=== PATIENT | male | born 1935 | race Caucasian/White ===

== ENCOUNTER → 2016-09-17 | Outpatient (REF) | payer MEDICARE ==
[2016-09-17 12:54] LABS: ALBUMIN/GLOBULIN RATIO 1.33 (1.00-1.93); BILIRUBIN,TOTAL 0.4 MG/DL (0.2-1.0); CALCIUM LEVEL 8.9 MG/DL (8.8-10.2); CREATININE FOR GFR 1.29 MG/DL (0.70-1.30); GLOMERULAR FILTRATION RATE 56.8 (>35); POTASSIUM SERUM 4.7 MEQ/L (3.5-5.1)
[2016-09-17 13:08] LABS: MEAN CORPUSCULAR HGB CONC 31.8 g/dl (32.0-36.5); MEAN CORPUSCULAR VOLUME 97.6 fl (80.0-96.0); RED CELL DISTRIBUTION WIDTH 14.1 % (11.5-14.5); WHITE BLOOD COUNT 6.9 K/mm3 (4.0-10.0)
== END ==
LOC: M SFHCPLAZ 08:40
PROVIDERS: ATTEND Nurse Practitioner Adult Health
DX: Z00.00 Encounter for general adult medical examination without abnormal findings (principal); I10 Essential (primary) hypertension; I77.9 Disorder of arteries and arterioles, unspecified; E55.9 Vitamin D deficiency, unspecified; I73.9 Peripheral vascular disease, unspecified; D64.9 Anemia, unspecified

== ENCOUNTER → 2017-03-19 | Outpatient (REF) | payer MEDICARE ==
[2017-03-19 12:09] LABS: MEAN CORPUSCULAR HEMOGLOBIN 31.2 pg (27.0-33.0); MEAN CORPUSCULAR HGB CONC 32.2 g/dl (32.0-36.5); MEAN CORPUSCULAR VOLUME 96.8 fl (80.0-96.0); WHITE BLOOD COUNT 7.4 K/mm3 (4.0-10.0)
[2017-03-19 14:12] LABS: ALBUMIN/GLOBULIN RATIO 1.21 (1.00-1.93); ALKALINE PHOSPHATASE 81 U/L (45-117); ALT/SGPT 16 U/L (12-78); ANION GAP 6 MEQ/L (8-16); AST/SGOT 19 U/L (15-37); BILIRUBIN,TOTAL 0.4 MG/DL (0.2-1.0); BLOOD UREA NITROGEN 27 MG/DL (7-18); CALCIUM LEVEL 9.4 MG/DL (8.8-10.2); CARBON DIOXIDE LEVEL 27 MEQ/L (21-32); CHLORIDE LEVEL 107 MEQ/L (98-107); CHOLESTEROL LEVEL 135 MG/DL (<200); CREATININE FOR GFR 1.21 MG/DL (0.70-1.30); GLOMERULAR FILTRATION RATE > 60.0 (>35); GLUCOSE, FASTING 83 MG/DL (83-110); POTASSIUM SERUM 4.7 MEQ/L (3.5-5.1); SODIUM LEVEL 140 MEQ/L (136-145); TOTAL PROTEIN 7.3 GM/DL (6.4-8.2); TRIGLYCERIDES LEVEL 88 MG/DL (<150)
== END ==
LOC: M SFHCPLAZ 10:12
PROVIDERS: ATTEND Nurse Practitioner Adult Health
DX: Z00.00 Encounter for general adult medical examination without abnormal findings (principal); E78.2 Mixed hyperlipidemia; E55.9 Vitamin D deficiency, unspecified

== ENCOUNTER → 2018-05-13 | Outpatient (CLI) | payer MEDICARE | LOC: M WUC 10:52 | DX: S40.011A Contusion of right shoulder, initial encounter (principal); X58.XXXA Exposure to other specified factors, initial encounter; Y92.9 Unspecified place or not applicable | CPT/HCPCS: 73030 ==

== ENCOUNTER → 2018-05-19 | Outpatient (CLI) | payer MEDICARE ==
[2018-05-19 12:02] LABS: HEMATOCRIT 37.9 % (42.0-52.0); HEMOGLOBIN 12.3 g/dl (13.5-17.5); MEAN CORPUSCULAR HEMOGLOBIN 31.2 pg (27.0-33.0); MEAN CORPUSCULAR HGB CONC 32.5 g/dl (32.0-36.5); MEAN CORPUSCULAR VOLUME 96.2 fl (80.0-96.0); PLATELET COUNT, AUTOMATED 273 10^3/uL (150-450); RED BLOOD COUNT 3.94 10^6/uL (4.30-6.10); RED CELL DISTRIBUTION WIDTH 14.1 % (11.5-14.5); WHITE BLOOD COUNT 8.2 10^3/uL (4.0-10.0)
[2018-05-19 12:12] LABS: TOTAL 25(OH) VITAMIN D 55.4 NG/ML (30.0-100.0)
[2018-05-19 12:13] LABS: ALBUMIN 3.8 GM/DL (3.2-5.2); ALBUMIN/GLOBULIN RATIO 1.12 (1.00-1.93); ALKALINE PHOSPHATASE 90 U/L (45-117); ALT/SGPT 16 U/L (12-78); ANION GAP 7 MEQ/L (8-16); AST/SGOT 18 U/L (7-37); BILIRUBIN,TOTAL 0.4 MG/DL (0.2-1.0); BLOOD UREA NITROGEN 24 MG/DL (7-18); CALCIUM LEVEL 8.8 MG/DL (8.8-10.2); CARBON DIOXIDE LEVEL 30 MEQ/L (21-32); CHLORIDE LEVEL 105 MEQ/L (98-107); CHOLESTEROL LEVEL 147 MG/DL (<200); CHOLESTEROL RISK RATIO 3.418 (<5); GLOMERULAR FILTRATION RATE > 60.0 (>35); GLUCOSE, FASTING 95 MG/DL (70-100); HDL CHOLESTEROL 43 MG/DL (>40); NON-HDL-C 104 MG/DL; POTASSIUM SERUM 4.3 MEQ/L (3.5-5.1); SODIUM LEVEL 142 MEQ/L (136-145); TOTAL PROTEIN 7.2 GM/DL (6.4-8.2)
[2018-05-19 12:35] LABS: LDL CHOLESTEROL 86 MG/DL (<100); TRIGLYCERIDES LEVEL 88 MG/DL (<150)
== END ==
LOC: M WUC 09:13
DX: D64.9 Anemia, unspecified (principal); I10 Essential (primary) hypertension; E78.2 Mixed hyperlipidemia; E55.9 Vitamin D deficiency, unspecified
CPT/HCPCS: 80053

== ENCOUNTER → 2019-06-04 | Outpatient (REF) | payer MEDICARE ==
[2019-06-04 12:31] LABS: ALBUMIN 4.1 GM/DL (3.2-5.2); BILIRUBIN,TOTAL 0.5 MG/DL (0.2-1.0); CALCIUM LEVEL 9.6 MG/DL (8.8-10.2); CHOLESTEROL RISK RATIO 3.622 (<5); CREATININE FOR GFR 1.23 MG/DL (0.70-1.30); GLOMERULAR FILTRATION RATE 59.5 (>35); POTASSIUM SERUM 4.5 MEQ/L (3.5-5.1); THYROID STIMULATING HORMONE 2.65 uIU/ML (0.358-3.740); TOTAL 25(OH) VITAMIN D 68.2 NG/ML (30.0-100.0); TOTAL PROTEIN 7.6 GM/DL (6.4-8.2)
== END ==
LOC: M SFHCPLAZ 10:40
PROVIDERS: ATTEND Nurse Practitioner Adult Health
DX: I10 Essential (primary) hypertension (principal); E78.2 Mixed hyperlipidemia; E55.9 Vitamin D deficiency, unspecified

== ENCOUNTER → 2020-03-03 | Outpatient (CLI) | payer MEDICARE ==
[2020-03-03 09:29] LABS: HEMATOCRIT 39.8 % (42.0-52.0); HEMOGLOBIN 12.5 g/dl (13.5-17.5); MEAN CORPUSCULAR HEMOGLOBIN 30.6 pg (27.0-33.0); MEAN CORPUSCULAR HGB CONC 31.4 g/dl (32.0-36.5); MEAN CORPUSCULAR VOLUME 97.3 fl (80.0-96.0); PLATELET COUNT, AUTOMATED 256 10^3/uL (150-450); RED BLOOD COUNT 4.09 10^6/uL (4.30-6.10); WHITE BLOOD COUNT 8.5 10^3/uL (4.0-10.0)
[2020-03-03 10:08] LABS: ALBUMIN 3.8 GM/DL (3.2-5.2); BILIRUBIN,TOTAL 0.4 MG/DL (0.2-1.0); CALCIUM LEVEL 9.1 MG/DL (8.8-10.2); CHOLESTEROL RISK RATIO 3.195 (<5); CREATININE FOR GFR 1.26 MG/DL (0.70-1.30); GLOMERULAR FILTRATION RATE 57.9 (>35); POTASSIUM SERUM 4.9 MEQ/L (3.5-5.1); TOTAL PROTEIN 7.3 GM/DL (6.4-8.2)
== END ==
LOC: M WUC 08:28
PROVIDERS: ATTEND Nurse Practitioner Adult Health
DX: E55.9 Vitamin D deficiency, unspecified (principal); I10 Essential (primary) hypertension; D64.9 Anemia, unspecified; E78.2 Mixed hyperlipidemia; Z79.899 Other long term (current) drug therapy

== ENCOUNTER 2020-09-10 11:11 | Observation (INO) | payer MEDICARE ==
--- OUTSIDE RECORDS SUMMARY | 2020-09-10 11:38 | CCD ---
Author Author [facility] Address Unknown Phone Unavailable Support Name Relationship Address Phone RETIRED Next Of Kin Unknown RE Next Of Kin Unknown Unavailable PIPO FAJARDO Next Of Kin [address] [place] [address] Pipo fajardo ECON [address] [place] [address] Unavailable Re-disclosure Warning The records that you are about to access may contain information from federally-assisted alcohol or drug abuse programs. If such information is present, then the following federally mandated warning applies: This information has been disclosed to you from records protected by federal confidentiality rules (42 CFR part 2). The federal rules prohibit you from making any further disclosure of this information unless further disclosure is expressly permitted by the written consent of the person to whom it pertains or as otherwise permitted by 42 CFR part 2. A general authorization for the release of medical or other information is NOT sufficient for this purpose. The Federal rules restrict any use of the information to criminally investigate or prosecute any alcohol or drug abuse patient.The records that you are about to access may contain highly sensitive health information, the redisclosure of which is protected by Article 27-F of the [facility] Public Health law. If you continue you may have access to information: Regarding HIV / AIDS; Provided by facilities licensed or operated by the [facility] Office of Mental Health; or Provided by the [facility] Office for People With Developmental Disabilities. If such information is present, then the following [facility] mandated warning applies: This information has been disclosed to you from confidential records which are protected by state law. State law prohibits you from making any further disclosure of this information without the specific written consent of the person to whom it pertains, or as otherwise permitted by law. Any unauthorized further disclosure in violation of state law may result in a fine or snf sentence or both. A general authorization for the release of medical or other information is NOT sufficient authorization for further disc losure. Family History Family Member Name Family Member Gender Family Member Status Date o f Status Description Data Source(s) Unknown Unknown Problem MED[facility] ([facility]) father- Encounters Encounter Providers Location Date Indications Data Source(s ) [place] [address] [facility] [place] [address] 08/01/2020 12:00:00 AM EST eCW1 ([facility]) [place] [address] [facility] [place] [address] 07/05/2020 12:00:00 AM EST eCW1 ([facility]) [place] [address] [facility] [place] [address] 06/02/2020 12:00:00 AM EDT eCW1 ([facility]) [place] [address] [facility] [place] [address] 06/01/2020 12:00:00 AM EDT eCW1 ([facility] [address] [facility] [address] 03/08/2020 12:00:00 AM EDT eCW1 ([facility]) [place] [address] [facility] [address] 03/03/2020 12:00:00 AM EDT eCW1 ([facility]) [place] [address] [facility] [place] [address] 02/25/2020 12:00:00 AM EDT eCW1 ([facility]) [place] [address] [facility] [address] 01/28/2020 12:00:00 AM EDT eCW1 ([facility]) [facility] [address] [facility] [place] [address] 12/30/2019 12:00:00 AM EDT eCW1 ([facility]) [facility] [place] [address] [facility] [place] [address] 12/08/2019 12:00:00 AM EDT [facility]CW[facility] hospital[place] [address] [address] 11/26/2019 12:00:00 AM EDT eCW1 (Critical access hospital[place] [address] [address] 10/27/2019 12:00:00 AM EDT eCW1 (Critical access hospital[place] [address] [address] 09/28/2019 12:00:00 AM EST eCW1 (Critical access hospital[place] [address] [address] 08/20/2019 12:00:00 AM EST eCW1 (Critical access hospital[place] [address] [address] 07/21/2019 12:00:00 AM EST eCW1 (Critical access hospital) Insurance Providers Payer name Policy type / Coverage type Policy ID Covered green party ID Covered green party's relationship to [place] Policy [place] Plan Information AETNA MEDICARE [id number] SP [id number] SFN ANSI-Medicare Part B [id number] ANSI-Medicare Part B [id number] ANSI-Medicare Part B [id number] ANSI-Medicare Part B [id number] ANSI-Medicare Part B [id number] ANSI-Medicare Part B [id number] ANSI-Medicare Part B [id number] ANSI-Medicare Part B [id number] ANSI-Medicare Part B [id number] ANSI-Medicare Part B [id number] ANSI-Medicare Part B [id number] ANSI-Medicare Part B [id number] ANSI-Medicare Part B [id number] ANSI-Medicare Part B [id number] ANSI-Medicare Part B [id number] ANSI-Medicare Part B [id number] ANSI-Medicare Part B [id number] MEDICARE COMPLETE [id number] SP [id number] ANSI-Medicare Part B [id number] ANSI-Medicare Part B [id number] ANSI-Medicare Part B [id number] [facility] [id number] Self [id number] ANSI-Medicare Part B [id number] ANSI-Medicare Part B [id number] ANSI-Medicare Part B [id number] [facility] [id number] Self [id number] [facility] [id number] SP [id number] MEDICARE COMPLETE [id number] SP [id number]
--- OUTSIDE RECORDS SUMMARY | 2020-09-10 11:38 | CCD ---
Author Author [facility] Organization [facility] Address Unknown Phone Unavailable Care Team Providers Care Surgical Elastic Knitter Hand Frame Name Role Phone Carlosjhonatan Amy Unavailable PROBLEMS Type Condition ICD9-CM Code WEH83-MZ Code Onset Dates Condition S tatus SNOMED Code Notes Problem Gout M10.9 Active 06103501 Problem Anemia D64.9 Active 313759638 Problem Insomnia G47.00 Active 790118001 Problem Mixed hyperlipidemia E78.2 Active 998986654 Problem Hypercholesterolemia E78.0 Active 37999593 Problem Aortic valve sclerosis I35.8 Active 00521680 Problem PVD (peripheral vascular disease) I73.9 Active 943037114 Problem Hypertension I10 Active 21411052 Problem Vitamin D deficiency E55.9 Active 54670691 Problem Carotid artery disease I77.9 Active 389141489 Problem Irregular heart beat I49.9 Active 556143830 ALLERGIES No Known Allergies ENCOUNTERS from 1935 to 2020-08-01 Encounter Location Date Provider Diagnosis [address] [address] Jul, Amy Bolivar Insomnia G47.00 IMMUNIZATIONS Vaccine Route Administration Date Status Influenza (18 yrs & older) Flublok IM Intramuscular Jun 04, 2019 Administered Influenza (High Dose 65 & up) Unknown May 17, 2017 Ad ministered Influenza (High Dose 65 & up) Unknown Jun 13, 2015 Ad ministered TDAP (VFC) 0.5mL (Boostrix) Unknown November 13, 2004 Admi nistered Pneumococcal Adult 0.5mL (Pneumovax 23) Unknown Aug 19, 2000 Administered Pneumococcal 0.5mL (Prevnar 13) IM Intramuscular Sep 21, 2015 Administered SOCIAL HISTORY Tobacco Use: Social History Observation Description Date Details (start date - stop date) Never Smoker Sex Assigned At : Social History Observation Description Sex Assigned At Unknown Audit Question Answer Notes Total Score: 0 Interpretation: Alcohol Education Hinduism: Question Answer Notes Hinduism 21 Episcopal Sexual Hx: Question Answer Notes Had sex in the last 12 months (vaginal, oral, or anal)? No Have you ever had an STD? No Drug and Alcohol Question Answer Notes Total Score: 0 Interpretation: No problems reported Alcohol Screening: Question Answer Notes Did you have a drink containing alcohol in the past year? No Points 0 Interpretation Negative Tobacco Use: Question Answer Notes Are you a: never smoker REASON FOR REFERRAL No Information VITAL SIGNS No information MEDICATIONS Medication SIG (Take, Route, Frequency, Duration) Notes Start Da te End Date Status Vitamin D 2000 UNIT 2 tablets Orally Once a day Active Ambien 5 MG 1 tablet Orally/668096736 be fore bedtime as needed mdd=1/ PT IS GOING TO PAY FOR SCRIPT WITH [employer] for 30 day(s) Active AmLODIPine Besylate 5 MG 1 tablet Orally Once a day for 90 Active Allopurinol 300 MG 1 tablet orally Daily for 90 Active ICaps 2 tabs Orally Once a day Active TraZODone HCl 50 MG 1-2 tablets at bedtime as needed Orally Once a day for 45 Active Benazepril HCl 20 MG 1 tab orally twice daily for 90 Active PROCEDURES No Information RESULTS No Results REASON FOR VISIT ambien MEDICAL (GENERAL) HISTORY Type Description Date Medical History hypertension Medical History hyperlipidemia Medical History insomnia Medical History carotid artery disease Medical History gout Medical History erectile dysfunction Medical History peripheral vascular disease Medical History 02/21/2011 echocardiogram L VEF 75% aortic valvular sclerosis without stenosis only trace insufficiency. Mitral annular calcification moderate, with very mild mitral insufficiency. Borderline left atrial enlargement with Doppler evidence of an impairment of LV diastolic relaxation with a borderline degree of pulmonary hypertension Medical History 04/09/17 Echocardiogram [facility] OAE64-04% trace mitral insuff,trace tricuspid insuff, no significant valve disease. Medical History refuses colonoscopy 03/26/17 11/13/17 Surgical History Inguinal hernia 03/2012 Surgical History Carotid Endarterectomy 09/1996 Surgical History carotid Endarterectomy 07/1996 Surgical History basal cell spot removed right side of fa ce 08/2015 Hospitalization History none Goals Section No Information Health Concerns No Information MEDICAL EQUIPMENT No Information MENTAL STATUS No Information FUNCTIONAL STATUS No Information ASSESSMENTS Encounter Date Diagnosis Assessment Notes Treatment Notes Treatm ent Clinical Notes Jul, Insomnia (ICD-10 - G47.00) PLAN OF TREATMENT Medication Medication Name Sig Start Date Stop Date TraZODone HCl 50 MG 1-2 tablets at bedtime as needed Orally Once a day for 45 Allopurinol 300 MG 1 tablet orally Daily for 90 Ambien 5 MG 1 tablet Orally/091540560 be fore bedtime as needed mdd=1/ PT IS GOING TO PAY FOR SCRIPT WITH [employer] for 30 day(s) AmLODIPine Besylate 5 MG 1 tablet Orally Once a day for 90 Benazepril HCl 20 MG 1 tab orally twice daily for 90 Next Appt Details Provider Name:Amy Anita Bolivar, 10:00:00 AM, [facility] [place], [address], Insurance Providers Payer Name Payer Address Payer Phone Insured Name Patient Relati onship to Insured Coverage Start Date Coverage End Date AETNA MEDICARE AETNA [employer] INSURANCE [employer] [address] [facility] [address] REINALDO FAJARDO
--- OUTSIDE RECORDS SUMMARY | 2020-09-10 11:38 | CCD ---
Author Author [facility] Organization [facility] Address Unknown Phone Unavailable Care Team Providers Care Hand Thermal Cutter Name Role Phone Carlosjhonatan Amy Unavailable PROBLEMS Type Condition ICD9-CM Code NEJ29-GY Code Onset Dates Condition S tatus SNOMED Code Notes Problem Gout M10.9 Active 09061795 Problem Anemia D64.9 Active 734897640 Problem Insomnia G47.00 Active 773097034 Problem Mixed hyperlipidemia E78.2 Active 831839435 Problem Hypercholesterolemia E78.0 Active 32674936 Problem Aortic valve sclerosis I35.8 Active 04615229 Problem PVD (peripheral vascular disease) I73.9 Active 281472682 Problem Hypertension I10 Active 54903214 Problem Vitamin D deficiency E55.9 Active 14242268 Problem Carotid artery disease I77.9 Active 672132133 Problem Irregular heart beat I49.9 Active 290016526 ALLERGIES No Known Allergies ENCOUNTERS from 1935 to 2020-07-06 Encounter Location Date Provider Diagnosis [address] [address] Jun, Amy Bolivar Insomnia G47.00 IMMUNIZATIONS Vaccine Route [...] Assigned At Unknown Audit Question Answer Notes Interpretation: Alcohol Education Total Score: 0 Bahai: Question Answer Notes Bahai 21 Congregational Sexual Hx: Question Answer Notes Had sex in the last 12 months (vaginal, oral, or anal)? No Have you ever had an STD? No Drug and Alcohol Question Answer Notes Interpretation: No problems reported Total Score: 0 Alcohol Screening: Question Answer Notes Did you [...] 2 tablets Orally Once a day Active AmLODIPine Besylate 5 MG 1 tablet Orally Once a day for 90 Active TraZODone HCl 50 MG 1-2 tablets at bedtime as needed Orally Once a day for 45 Active Ambien 5 MG 1 tablet Orally, I-Stop #133 616303 before bedtime as needed mdd=1/ PT IS GOING TO PAY FOR SCRIPT WITH [employer] for 30 day(s) Active ICaps 2 tabs Orally Once a day Active Allopurinol 300 MG 1 tablet orally Daily for 90 Active Benazepril HCl 20 MG 1 tab orally twice daily for 90 Active PROCEDURES No Information RESULTS No Results REASON FOR VISIT Zolpidem Tartrate 5mg tablets MEDICAL (GENERAL) HISTORY Type Description Date Medical [...] of pulmonary hypertension Medical History 04/09/17 Echocardiogram [facility] FVM73-62% trace mitral insuff,trace tricuspid insuff, no significant [...] Notes Treatment Notes Treatm ent Clinical Notes Jun, Insomnia (ICD-10 - G47.00) PLAN OF TREATMENT Medication Medication Name Sig Start Date Stop Date Allopurinol 300 MG 1 tablet orally Daily for 90 Ambien 5 MG 1 tablet Orally, I-Stop #133 [id number] before bedtime as needed mdd=1/ PT IS GOING TO PAY FOR SCRIPT WITH [employer] for 30 day(s) AmLODIPine Besylate 5 MG 1 tablet Orally Once a day for 90 TraZODone HCl 50 MG 1-2 tablets at bedtime as needed Orally Once a day for 45 Benazepril HCl 20 MG 1 tab orally twice daily for 90 Next Appt Details Provider Name:Amy Anita Bolivar, 10:00:00 AM, [address] [place] [address], [address], Insurance Providers Payer Name Payer Address Payer Phone Insured Name Patient Relati onship to Insured Coverage Start Date Coverage End Date AETNA MEDICARE AETNA [employer] INS[employer]ANCE [employer] [address] [facility] [address] REINALDO FAJARDO
[2020-09-10 11:42] LABS: VENOUS BASE EXCESS -17.9 (-2.0-2.0); VENOUS O2 SATURATION 73.1 % (60.0-80.0); VENOUS PARTIAL PRESSURE CO2 36.7 mmHg (38.0-50.0); VENOUS PARTIAL PRESSURE O2 49.4 mmHg (30.0-50.0); VENOUS PH 7.094 UNITS (7.330-7.430); VENOUS STANDARD HCO3 10.9 MEQ/L; VENOUS TOTAL CO2 12.1 MEQ/L (24.0-28.0)
[2020-09-10 11:46] LABS: BASO % 0.1 % (0.0-1.0); HEMATOCRIT 40.9 % (42.0-52.0); HEMOGLOBIN 12.9 g/dl (13.5-17.5); LYMPH # 0.4 10^3/uL (1.5-5.0); LYMPH % 4.1 % (24.0-44.0); MEAN CORPUSCULAR HEMOGLOBIN 30.7 pg (27.0-33.0); MEAN CORPUSCULAR HGB CONC 31.5 g/dl (32.0-36.5); MEAN CORPUSCULAR VOLUME 97.4 fl (80.0-96.0); MONO # 0.6 10^3/uL (0.0-0.8); MONO % 6.4 % (0.0-5.0); NEUTROPHILS # 8.8 10^3/uL (1.5-8.5); NEUTROPHILS % 89.3 % (36.0-66.0); PLATELET COUNT, AUTOMATED 186 10^3/uL (150-450); WHITE BLOOD COUNT 9.9 10^3/uL (4.0-10.0)
--- NOTE | 2020-09-10 11:56 | REP ---
INDICATION: Altered Mental Status. COMPARISON: None. TECHNIQUE: Helical scanning is acquired. 5 mm axial images were reformatted. Coronal MPR images were generated. FINDINGS: Digital shoe puller view is unremarkable. Bone window settings show mucosal changes in the maxillary, ethmoidal, and sphenoid sinuses consistent with paranasal sinus disease. No intraorbital abnormality is seen. No bony destructive lesion or fracture is noted. There is a large low-density area in the distribution of the left anterior cerebral artery affecting the left frontal lobe and frontal parietal lobe consistent with a recent infarction. There is also abnormal low-density and some swelling in the basal ganglia on the left consistent with recent infarction this looks location as well. There is no evidence of intracranial hemorrhage. There is some swelling in the infarcted territory of the left frontal lobe but no shelly midline shift is seen. There is generalized volume loss. No extra-axial fluid collection is seen. Vascular calcification is observed. 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 There is also edema and swelling in the left basal ganglia consistent with recent infarction here. No hemorrhage is seen. Generalized volume loss and vascular calcification are noted.. <Electronically signed by Cristobal King > 09/10/20 [id number]
--- NOTE | 2020-09-10 11:57 | REP ---
INDICATION: Altered Mental Status. COMPARISON: None. TECHNIQUE: Helical scanning is acquired and overlapping 2 mm high resolution axial images were generated and reviewed at bone and soft tissue window settings. Coronal and sagittal multiplanar re-formations images are generated. FINDINGS: There is no evidence of cervical spine element fracture. No skull base fracture is seen. Cervical vertebral body heights are preserved. Alignment is normal. Facet joints are normally aligned bilaterally at each cervical level on multiplanar re-formations images. There is no evidence of intraspinal or paraspinal hematoma. No extra vertebral abnormality is seen. There are degenerative changes at the articulation between the anterior arch of C1 and C2. Degenerative disc disease is noted in the cervical spine most pronounced at2 an azygos lobe is noted. IMPRESSION: Degenerative spondylosis changes. No acute cervical spine abnormality. No fracture seen.. <Electronically signed by Cristobal King > 09/10/20 [id number]
--- NOTE | 2020-09-10 12:00 | REP ---
INDICATION: Altered Mental Status. COMPARISON: None. TECHNIQUE: Helical scanning is acquired. 3 mm axial images are generated. Coronal and sagittal MPR and coronal MIP images are generated. FINDINGS: There are fairly extensive areas of consolidation in the lower lobes bilaterally particularly the left lower lobe consistent with pneumonia. There is some patchy infiltrate in the right middle lobe distribution as well. There are infiltrates in the right upper lobe. An azygos lobe configuration is noted incidentally. There are ground-glass opacities in the left upper lobe and a peribronchovascular nodular density is seen in the left upper lobe consistent with left upper lobe pneumonia as well. There are granulomatous calcifications in the liver and the spleen. Normal adrenal glands are seen. Vascular calcification is noted. No hilar or mediastinal mass or adenopathy is seen. IMPRESSION: Extensive bilateral multifocal infiltrates consistent with pneumonia. <Electronically signed by Cristobal King > 09/10/20 [id number]
--- NOTE | 2020-09-10 12:03 | REP ---
INDICATION: Altered Mental Status COMPARISON: None. TECHNIQUE: Helical scanning is acquired in 4 mm axial images were reformatted. Coronal and sagittal MPR images were generated and reviewed. FINDINGS: There are granulomatous calcifications in the liver and the spleen. No focal hepatic or splenic mass lesion is observed. Normal adrenal glands are seen bilaterally. No abnormality is noted in the pancreas. The gallbladder is unremarkable. No retroperitoneal mass or adenopathy is observed. Vascular calcification is seen. There is mild bilateral hydronephrosis. A Bruner catheter is noted in place however the urinary bladder is quite distended. It contains urine and some air. There is left colonic diverticulosis without CT evidence of diverticulitis. There is no evidence of free intraperitoneal air. The cecum is somewhat dilated and air-filled in the central abdomen. Prominent vascular calcification is noted. No bony destructive lesion. IMPRESSION: Bruner catheter in the urinary bladder however urinary bladder remains moderately to markedly distended. There is bilateral hydronephrosis mild in degree. Prostate enlargement. Left colonic diverticulosis. Question mild ileus pattern in the bowel gas. <Electronically signed by Cristobal King > 09/10/20 [id number]
[2020-09-10] MEDS ORDERED: LIDOCAINE 5% (LIDODERM) PATCH TD ONE (12:15)
[2020-09-10] MEDS ORDERED: ZOLP5TAB PO (12:20)
[2020-09-10 12:22] LABS: ALBUMIN 3.6 GM/DL (3.2-5.2); BILIRUBIN,DIRECT 0.3 MG/DL (0.0-0.2); BILIRUBIN,TOTAL 0.6 MG/DL (0.2-1.0); THYROID STIMULATING HORMONE 1.13 uIU/ML (0.358-3.740); TOTAL PROTEIN 7.4 GM/DL (6.4-8.2)
--- NOTE | 2020-09-10 12:23 | REP ---
INDICATION: Altered Mental Status. COMPARISON: No comparison study. TECHNIQUE: Portable upright AP chest radiograph. Two views. FINDINGS: There are extensive patchy infiltrates bilaterally. An azygos lobe is noted. Heart is not enlarged. There is diffuse osteopenia.. IMPRESSION: Patchy bilateral infiltrates. Azygos lobe. Normal heart size.. <Electronically signed by Cristobal King > 09/10/20 [id number]
[2020-09-10] MEDS ORDERED: AMLO1TAB24 PO (12:29)
[2020-09-10] MEDS ORDERED: BENA20TA8 PO (12:29)
[2020-09-10] MEDS ORDERED: D31000TA2 PO (12:30)
[2020-09-10] MEDS ORDERED: OCUVCAP2 PO (12:30)
[2020-09-10] MEDS ORDERED: ZYLO300T6 PO (12:30)
[2020-09-10] MEDS ORDERED: NS 1,000 ML IV ONE ×2 (12:30→14:45)
[2020-09-10] MEDS ORDERED: AZITHROMYCIN INJ 500 MG, VIAL MATE ADAPTER 1 EACH in D5W 250 ML IV ONE (13:15)
[2020-09-10] MEDS ORDERED: cefTRIAXone SOD 1 GM in D5W MINI-BAG PLUS 50 ML IV ONE (13:15)
[2020-09-10 14:04] LABS: RSV AMPLIFICATION NEGATIVE (NEGATIVE)
[2020-09-10] MEDS ORDERED: SCOPOLAMINE 1MG TRANSDERMAL PATCH TOP PRN (15:45)
--- OUTSIDE RECORDS SUMMARY | 2020-09-10 15:46 | CCD ---
Author Author [facility] Address Unknown Phone Unavailable Support Name Relationship Address Phone RETIRED Next Of Kin Unknown RE Next Of Kin Unknown Unavailable PIPO FAJARDO Next Of Kin [address] [place] [address] Pipo fajardo ECON [address] [place] [address] Unavailable Re-disclosure Warning The records that you [...] is protected by Article 27-F of the [facility] Public Health law. If you continue you may have access to information: Regarding HIV / AIDS; Provided by facilities licensed or operated by the [facility] Office of Mental Health; or Provided by the [facility] Office for People With Developmental Disabilities. If such information is present, then the following [facility] mandated warning applies: This information has been [...] law may result in a fine or halfway sentence or both. A general authorization for the release of medical or other information is NOT sufficient authorization for further disc losure. Family History Family Member Name Family Member Gender Family Member Status Date o f Status Description Data Source(s) Unknown Unknown Problem MED[facility] ([facility]) father- Encounters Encounter Providers Location Date Indications Data Source(s ) Unknown [address] [facility] [place] [address] 08/01/2020 12:00:00 AM EST eCW1 ([facility]) [place] [address] [facility] [place] [address] 07/05/2020 12:00:00 AM EST eCW1 ([facility]) Unknown [address] [facility] [place] [address] 06/02/2020 12:00:00 AM EDT eCW1 ([facility]) Unknown [address] [facility] [place] [address] 06/01/2020 12:00:00 AM EDT eCW1 ([facility]) [facility] [address] [facility] [address] 03/08/2020 12:00:00 AM EDT eCW1 ([facility]) Unknown [address] [facility] [address] 03/03/2020 12:00:00 AM EDT eCW1 ([facility]) Unknown [address] [facility] [place] [address] 02/25/2020 12:00:00 AM EDT eCW1 ([facility]) Unknown [address] [facility] [address] 01/28/2020 12:00:00 AM EDT eCW1 ([facility]) [facility] [address] [facility] [place] [address] 12/30/2019 12:00:00 AM EDT eCW1 ([facility]) [facility] [place] [address] [facility] [place] [address] 12/08/2019 12:00:00 AM EDT eCW1 ([facility]) [address] [address] 11/26/2019 12:00:00 AM EDT eCW1 ([facility]) [address] [address] 10/27/2019 12:00:00 AM EDT eCW1 ([facility]) [address] [address] 09/28/2019 12:00:00 AM EST eCW1 ([facility]) [address] [address] 08/20/2019 12:00:00 AM EST eCW1 ([facility]) [address] [address] 07/21/2019 12:00:00 AM EST eCW1 ([facility]) Insurance Providers Payer name Policy type / Coverage type Policy ID Covered libertarian ID Covered libertarian's relationship to [place] Policy [place] Plan Information AET[employer] MEDICARE [id number] SP [id number] SFN ANSI-Medicare Part B [id number] ANSI-Medicare Part B [id number] ANSI-Medicare Part B [id number] ANSI-Medicare Part B [id number] ANSI-Medicare Part B [id number] ANSI-Medicare Part B [id number] ANSI-Medicare Part B [id number] ANSI-Medicare Part B [id number] ANSI-Medicare Part B [id number] ANSI-Medicare Part B [id number] ANSI-Medicare Part B [id number] ANSI-Medicare Part B [id number] ANSI-Medicare Part B [id number] ANSI-Medicare Part B [id number] ANSI-Medicare Part B [id number] ANSI-Medicare Part B [id number] ANSI-Medicare Part B [id number] MEDICARE COMPLETE [id number] SP [id number] ANSI-Medicare Part B [id number] ANSI-Medicare Part B [id number] ANSI-Medicare Part B [id number] [facility] [id number] Self [id number] ANSI-Medicare Part B [id number] ANSI-Medicare Part B [id number] ANSI-Medicare Part B [id number] [facility] Commercial [id number] Self [id number] [facility] [id number] SP [id number] MEDICARE COMPLETE [id number] SP [id number]
[2020-09-10 16:40] VITALS: BP 104/51
--- NOTE | 2020-09-10 16:42 | ECGEPIP ---
[facility] - ED Test Date: 2020-09-10 Pat Name: REINALDO FAJARDO Department: Room: - Gender: Male Health Outcomes Liaison: santo : 1935 Requested By: Ariadna Mccallum Order Number: [id number] Reading MD: Ariadna Mccallum Measurements Intervals [place] Rate: 52 P: 85 [place]: 184 QRS: 80 QRSD: 105 T: 71 QT: 469 QTc: 440 Interpretive Statements SINUS BRADYCARDIA baseline artifact may affect interpretation ST ELEVATION, PROBABLY EARLY REPOLARIZATION NONSPECIFIC T-WAVE ABNORMALITY Electronically Signed on 09-10-2020 16:41:50 EST by Ariadna Mccallum
--- NOTE | 2020-09-10 17:08 | HPEPDOC ---
General Date of Admission Sep 10, 2020 Date of Service: Sep 10, 2020 Attending Physician: HAILEY CASAS DO Chief Complaint The patient is a 85-year-old male admitted with a reason for visit of Alt Mental Status. Source: Family, EMS History of Present Illness Mr. Rivera is an 85 year old male with BPH, HTN, and HLD who was brought in by ambulance after being found down on the ground. He was last seen on outside snow blowing. He had an appointment with his PCP that morning, but was absent for it. Today, EMS found him down supine and unresponsive. He was brought into the ED. He was hypothermic at 86.7 deg F and hypoxic at 86% at room air. Otherwise blood pressure was stable and heart rate was borderline bradycardic. He was given warm saline and put underneath the light. He was abreu scanned. He has a large left acute stroke in the JOHNNY territory. He also has extensive bilateral multifocal infiltrates in his chest CT. He also has a creatinine of 8.8. When I saw the patient, they were still warming him up. He was still no responsive. He responded to stimuli to his foot, but not when I pinched his arms or chest. Pupils did not track. I spoke the neurologist. From a neurological standpoint, patient's prognosis was poor. If he were to survive his other medical conditions, he would most likely have right sided hemiparesis and aphasia. I spoke with the family about the prognosis. Per Isidra Kevin (daughter) and Momo Ruiz (HCP), if he were to have any physical impairment or would not be able to speak, he would not want to continue like this and would like to withdrawal care. I discuss ORNAMENTAL BRICK INSTALLER with the HCP and daughter present and they were agreeable to it. 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 Home Medications Scheduled Allopurinol (Zyloprim) 300 Mg Tablet, 300 MG PO DAILY, (Reported) Amlodipine Besylate (Amlodipine Besylate) 5 Mg Tablet, 5 MG PO DAILY, (Reported) Benazepril HCl (Benazepril HCl) 20 Mg Tablet, 20 MG PO BID, (Reported) C,E,Zinc,Copper 24/Om3/Lut/Darren (Ocuvite Adult 50 Plus Softgel) 1 Each Capsule, 1 CAP PO DAILY, (Reported) Cholecalciferol (Vitamin D3) (Vitamin D3) 1,000 Unit Tablet, 1,000 UNITS PO DAILY, (Reported) Zolpidem Tartrate (Zolpidem Tartrate) 5 Mg Tablet, 5 MG PO QHS, (Reported) Allergies Coded Allergies: No Known Allergies (Unverified , 09/10/20) Past Medical History Medical History 1. Hypertension 2. Hyperlipidemia 3. Insomnia 4. Carotid artery disease 5. Gout 6. Erectile dysfunction 7. Peripheral vascular disease 8. Pulmonary hypertension Surgical History 1. Inguinal hernia 2. Carotid endarterectomy 09/1996 3. Carotid endarterectomy 07/1996 4. Basal cell spot removed right side of face 08/2015 Family History Father: at 66 years old, [place] Mother: at 70 years old, Cancer of the trachea Social History * Smoker: other (Unknown, patient unresponsive) Alcohol: other (Unknown, patient unresponsive) Drugs: other (Unknown, patient unresponsive) A-FIB/CHADSVASC A-FIB History Current/History of A-Fib/PAF?: No Review of Systems Other systems Unable to obtain as patient is unresponsive. Physical Examination General Exam: Negative: Alert, Cooperative Eye Exam: Negative: Sclera icteric Chest Exam: Positive: Diminished Heart Exam: Positive: Rate Normal, Bradycardic Abdomen Exam: Positive: BS Hypoactive Skin Exam: Positive: Other skin issue (Bruising on right arm, right ear. Also laceration behind right ear) Neuro Exam: Negative: Sensation Intact (No responsive to physical stimuli to upper body) Psych Exam: Negative: Mental status NL (Unresponsive) Vital Signs Vital Signs Date Time Temp Pulse Resp B/P (MAP) Pulse Ox O2 Delivery O2 Flow Rate FiO2 09/10/20 14:00 93.7 67 16 105/55 (72) 98 Non-Rebreather Laboratory Data Labs 24H Laboratory Tests 2 09/10/20 11:30: Immature Granulocyte % (Auto) 0.1, Neutrophils (%) (Auto) 89.3H, Lymphocytes (%) (Auto) 4.1L, Monocytes (%) (Auto) 6.4H, Eosinophils (%) (Auto) 0.0, Basophils (%) (Auto) 0.1, Neutrophils # (Auto) 8.8H, Lymphocytes # (Auto) 0.4L, Monocytes # (Auto) 0.6, Eosinophils # (Auto) 0.0, Basophils # (Auto) 0.0, Nucleated Red Blood Cells % (auto) 0.0, Blood Gas Bicarbonate Standard 10.9, Venous Blood pH 7.094L, Venous Blood Partial Pressure CO2 36.7L, Venous Blood Partial Pressure O2 49.4, Venous Blood Total Carbon Dioxide 12.1L, Venous Blood HCO3 11.0L, Venous Blood Oxygen Saturation 73.1, Venous Blood Base Excess -17.9L, Osmolality 350H, Lactic Acid Level 3.2*H, Total Bilirubin 0.6, Direct Bilirubin 0.3H, Aspartate Amino Transf (AST/SGOT) 150H, Alanine Aminotransferase (ALT/SGPT) 47, Alkaline Phosphatase 92, Ammonia < 10, Total Creatine Kinase 3866H, Total Protein 7.4, Albumin 3.6, Albumin/Globulin Ratio 0.9, Thyroid Stimulating Hormone (TSH) 1.130 09/10/20 11:34: POC Glucose (Misc Panel) 131H, POC Sodium (Misc Panel) 140, POC Potassium (Misc Panel) 5.2H, POC Chloride (Misc Panel) 110H, POC Total CO2 (Misc Panel) 14.0L, POC Blood Urea Nitrogen (Misc Panel > 140H, POC Ionized Calcium (Misc Panel) 4.4L, POC Creatinine (Misc Panel) 8.8H, POC Hematocrit (Misc Panel) 41.0 09/10/20 11:38: POC Lactate (Misc Panel) 3.09*H 09/10/20 11:40: POC Troponin I (Misc) 0.06 09/10/20 11:52: POC Prothrombin Time (Misc) 14.8H, POC INR (Misc) 1.2 09/10/20 11:53: Urine Color JOÃO, Urine Appearance CLEAR, Urine pH 5.0, Urine Specific [place] 1.013, Urine Protein 1+H, Urine Glucose (UA) NEGATIVE, Urine Ketones TRACEH, Urine Blood NEGATIVE, Urine Nitrite NEGATIVE, Urine Bilirubin NEGATIVE, Urine Urobilinogen 0.2, Urine Leukocyte Esterase NEGATIVE, Urine WBC (Auto) 1, Urine RBC (Auto) 2, Urine Hyaline Casts (Auto) 0, Urine Bacteria (Auto) NEGATIVE, Urine Squamous Epithelial Cells 0, Urine Sperm (Auto) 09/10/20 12:16: POC pH (Misc Panel) 7.152*L, POC Base Excess (Misc Panel) -17.0L, POC Saturated Percent O2 (Misc) 96, POC pO2 (Misc Panel) 102.0, POC pCO2 (Misc Panel) 32.5L, POC HCO3 (Misc Panel) 11.4L, POC Total CO2 (Misc Panel) 12.0L 09/10/20 13:21: Coronavirus (COVID-19)(PCR) NEGATIVE, Influenza Type A (RT-PCR) NEGATIVE, Influenza Type B (RT-PCR) NEGATIVE, Respiratory Syncytial Virus (PCR) NEGATIVE CBC/BMP Laboratory Tests 09/10/20 11:30 Assessment/Plan Mr. Rivera is an 85 year old male with BPH, HTN, and HLD who was brought in b y ambulance after being found down on the ground. He has a large left ischemic stroke. Speaking with neurology, he has a poor prognosis and will most likely have right sided weakness and aphasia. Per family, patient would not want to have physical impairment or be unable to communicate. 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 Plan / VTE VTE Prophylaxis Ordered?: No VTE Exclusion Mechanical Proph: Other (ORNAMENTAL BRICK INSTALLER) VTE Exclusion Pharmacological: Other (ORNAMENTAL BRICK INSTALLER) Plan Plan 1. Large left ischemic stroke in the JOHNNY distribution 2. Sepsis secondary to multifocal pneumonia 3. Acute renal failure 4. Hypothermia 5. Syncope 6. Rhabdomyolysis 7. Metabolic acidosis 8. Lactic acidosis 9. BPH Disposition: Momo Ruiz is the HCP. He was present with Isidra Brown, Rey Ruiz, and Zahra Zhou in making the decision to make patient ORNAMENTAL BRICK INSTALLER. MOLST form has been filled out to reflect ORNAMENTAL BRICK INSTALLER. HAILEY CASAS DO Sep 10, 2020 14:36
[2020-09-10] MEDS: MORPHINE 2 MG/ML 1ML VIAL (J2270) IV PRN (17:20)
[2020-09-10] MEDS ORDERED: LORazepam 2 MG/ML VIAL As Ordered ONE (19:20)
[2020-09-10] MEDS: LORazepam 2 MG/ML VIAL IV PRN ×2 (19:21→22:28)
[2020-09-10] MEDS ORDERED: **NOTE PATIENT COMMENT** MISC XX SCH (21:00)
[2020-09-10] MEDS ORDERED: MORPHINE 10MG/0.5ML ORAL CONCENTRATE SOLUTION U/D SL PRN (22:15)
[2020-09-11] MEDS: MORPHINE 2 MG/ML 1ML VIAL (J2270) IV PRN (00:22)
--- NOTE | 2020-09-11 23:23 | DS.PDOC ---
Discharge Summary General Date of Admission Sep 10, 2020 at 11:12 Date of Discharge Sep 11, 2020 Attending Physician: HAILEY CASAS DO Discharge Summary PROCEDURES PERFORMED DURING STAY: None ADMITTING DIAGNOSES: 1. Large left ischemic stroke in the JOHNNY distribution 2. Sepsis secondary to multifocal pneumonia 3. Acute renal failure 4. Hypothermia 5. Syncope 6. Rhabdomyolysis 7. Metabolic acidosis 8. Lactic acidosis 9. BPH DISCHARGE DIAGNOSES: 1. Large left ischemic stroke in the JOHNNY distribution 2. Sepsis secondary to multifocal pneumonia 3. Acute renal failure 4. Hypothermia 5. Syncope 6. Rhabdomyolysis 7. Metabolic acidosis 8. Lactic acidosis 9. BPH COMPLICATIONS/CHIEF COMPLAINT: Acute Cva Involving Anterior Cerebral Artery. HISTORY OF PRESENT ILLNESS: Mr. Rivera is an 85 year old male with BPH, HTN, and HLD who was brought in by ambulance after being found down on the ground. He was last seen on outside snow blowing. He had an appointment with his PCP that morning, but was absent for it. Today, EMS found him down supine and unresponsive. He was brought into the ED. He was hypothermic at 86.7 deg F and hypoxic at 86% at room air. Otherwise blood pressure was stable and heart rate was borderline bradycardic. He was given warm saline and put underneath the light. He was abreu scanned. He has a large left acute stroke in the [place] territory. He also has extensive bilateral multifocal infiltrates in his chest CT. He also has a creatinine of 8.8. When I saw the patient, they were still warming him up. He was still no responsive. He responded to stimuli to his foot, but not when I pinched his arms or chest. Pupils did not track. I spoke the neurologist. From a neurological standpoint, patient's prognosis was poor. If he were to survive his other medical conditions, he would most likely have right sided hemiparesis and aphasia. I spoke with the family about the prognosis. Per Isidra Brown (daughter) and Momo Ruiz (HCP), if he were to have any physical impairment or would not be able to speak, he would not want to continue like this and would like to withdrawal care. I discuss BILLING ANALYST with the HCP and daughter present and they were agreeable to it. 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 HOSPITAL COURSE: Patient was made comfortable. The patient was placed in observation and sent to the floor. Family was allowed to see the patient. On 09/11/2020 at 1:40am, the patient peacefully . The patient from respiratory arrest due to multifocal pneumonia and complicated by sepsis and large left JOHNNY stroke Vital Signs/I&Os Vital Signs Date Time Temp Pulse Resp B/P (MAP) Pulse Ox O2 Delivery O2 Flow Rate FiO2 09/10/20 16:50 100.0 09/10/20 16:40 16 104/51 (68) 99 Non-Rebreather 09/10/20 16:35 83 I&O- Last 24 Hours up to 6 AM 09/11/20 06:00 Intake Total 5305 ml Output Total 4850 ml Balance 455 ml Discharge Medications Scheduled Allopurinol (Zyloprim) 300 Mg Tablet, 300 MG PO DAILY, (Reported) Amlodipine Besylate (Amlodipine Besylate) 5 Mg Tablet, 5 MG PO DAILY, (Reported) Benazepril HCl (Benazepril HCl) 20 Mg Tablet, 20 MG PO BID, (Reported) C,E,Zinc,Copper 24/Om3/Lut/Darren (Ocuvite Adult 50 Plus Softgel) 1 Each Capsule, 1 CAP PO DAILY, (Reported) Cholecalciferol (Vitamin D3) (Vitamin D3) 1,000 Unit Tablet, 1,000 UNITS PO DAILY, (Reported) Zolpidem Tartrate (Zolpidem Tartrate) 5 Mg Tablet, 5 MG PO QHS, (Reported) Allergies Coded Allergies: No Known Allergies (Unverified , 09/10/20) HAILEY CASAS DO Sep 11, 2020 23:23
== END 2020-09-11 01:40 | disposition expired ==
LOC: M ED 11:11 → EDBD 11:11 → M ED INP 11:12 → M MSPAV 16:57
PROVIDERS: ADMIT Internal Medicine; ATTEND Internal Medicine
DX: I63.521 Cerebral infarction due to unspecified occlusion or stenosis of right anterior cerebral artery (principal); A40.3 Sepsis due to Streptococcus pneumoniae; N17.9 Acute kidney failure, unspecified; T68.XXXA Hypothermia, initial encounter; R55 Syncope and collapse; M62.82 Rhabdomyolysis; E87.2 Acidosis; N40.0 Benign prostatic hyperplasia without lower urinary tract symptoms; E78.5 Hyperlipidemia, unspecified; I73.9 Peripheral vascular disease, unspecified; I25.10 Atherosclerotic heart disease of native coronary artery without angina pectoris; Z79.899 Other long term (current) drug therapy; M10.9 Gout, unspecified; I27.0 Primary pulmonary hypertension; N52.9 Male erectile dysfunction, unspecified; G47.00 Insomnia, unspecified
CPT/HCPCS: 36600; 51702; 70450; 71045; 71250; 72125; 74176; 80047; 80076; 81001; 82140; 82550; 82803; 83605; 83930; 84443; 84484; 85025; 87631; 93005; 93041; 96361; 96365; 96367; 96375; 96376; 99285; G0378; J0456; J0696; J2060; J2270